=== PATIENT | male | born 1965 | race Caucasian/White ===

== ENCOUNTER 2019-04-10 12:43 | Emergency (ER) | payer BC, SELFPAY ==
[2019-04-10 12:57] VITALS: BP 160/98; PULSE 82; RESP 16; TEMP 37; O2SAT 98
--- NOTE | 2019-04-10 13:48 | ED.GENADULT ---
HPI - General Adult General Chief complaint: Upper Respiratory Infection Stated complaint: cough and ear Time Seen by Provider: 04/10/19 13:48 Source: patient Mode of arrival: ambulatory Limitations: no limitations History of Present Illness HPI narrative: 53-year-old male patient presents to the [facility] with complaints of cold symptoms for the past 8 days. Patient denies getting a flu shot this year. Patient denies any fevers. Patient states he has had a lot of drainage in the back of the throat causing coughing, runny nose, stuffy nose. Patient states he is also had some discomfort to the right ear. Denies any chest pain, shortness of breath, abdominal pain, nausea, vomiting or diarrhea. Patient denies taking anything for his symptoms. Related Data Home Medications Medication Instructions Recorded Confirmed losartan 50 mg PO DAILY 04/10/19 04/10/19 Allergies Allergy/AdvReac Type Severity Reaction Status Date / Time Penicillins Allergy Intermediate Anaphylaxis Verified 04/10/19 13:26 Review of Systems Review of Systems: Narrative: CONSTITUTIONAL: Denies fever, chills, or sweats. EYES: Denies visual changes, redness, or discharge. ENT: Positive rhinorrhea, congestion, sore throat, and right otalgia. CARDIOVASCULAR: Denies chest pain, palpitations, or edema. RESPIRATORY: Positive cough, denies dyspnea. GASTROINTESTINAL: Denies abdominal pain, nausea, vomiting, or diarrhea. GENITOURINARY: Denies dysuria or hematuria. SKIN: Denies rash or itching. MUSCULOSKELETAL: Denies back pain, joint pain, or myalgia. NEUROLOGIC: Denies headache, numbness, or weakness. PSYCHIATRIC: Denies anxiety or depression. PMFSH Social History Social History Alcohol intake: current Comments At the time of my signature I agree with nursing past medical history, surgical, social, and family history. There is no relevant family history pertinent to the presenting complaint. Exam Narrative: Exam Narrative: GENERAL: Well-appearing, well-nourished, and in no acute distress. HEAD: Normocephalic, atraumatic. No tenderness noted to frontal maxillary sinuses on palpation. EYES: PERRLA and EOMI. ENT: Nares with erythema and edema noted bilaterally, no rhinorrhea or epistaxis. Mucous membranes moist. Posterior pharynx with no erythema, tonsil enlargement, exudates or lesions present. There is a little fluid behind bilateral TMs noted but no erythema no foreign bodies in the canal. NECK: Supple. No lymphadenopathy CHEST: Clear to auscultation. No respiratory distress. HEART: Regular rate and rhythm. No murmur heard. Normal peripheral pulses. ABDOMEN: Soft, nontender, nondistended, normal active bowel sounds. EXTREMITIES: Normal range of motion. No edema. SKIN: Warm, dry, no rash. NEURO: No focal deficits. Alert and oriented x3. Course Vital Signs Vital signs: Vital Signs Temperature 37.0 C 04/10/19 12:57 Pulse Rate 82 04/10/19 12:57 Respiratory Rate 16 04/10/19 12:57 Blood Pressure 160/98 H 04/10/19 12:57 Pulse Oximetry 98 04/10/19 12:57 Temperature 37.0 C 04/10/19 12:57 Pulse Rate 82 04/10/19 12:57 Respiratory Rate 16 04/10/19 12:57 Blood Pressure 160/98 H 04/10/19 12:57 Pulse Oximetry 98 04/10/19 12:57 Vital signs reviewed. The patient has been informed that they may have pre-hypertension or Hypertension based on a BP reading in the department. I recommend that the patient call the primary care provider listed on their discharge instructions or a physician of their choice this week to arrange follow up for further evaluation of possible pre-hypertension or Hypertension Medical Decision Making Differential Diagnosis Differential Diagnosis: Differential diagnosis: Allergic rhinitis, chronic sinusitis, tonsillitis, acute sinusitis, infectious mononucleosis, seasonal influenza, pertussis, diphtheria, meningococcal disease, viral syndrome, viral bronc
== END 2019-04-10 13:55 | disposition home or self-care (01) ==
PROVIDERS: Emergency Provider Nurse Practitioner Family
DX: R05 Cough (principal); J30.9 Allergic rhinitis, unspecified; H93.8X3 Other specified disorders of ear, bilateral; J34.89 Other specified disorders of nose and nasal sinuses; K21.9 Gastro-esophageal reflux disease without esophagitis
CPT/HCPCS: 99211; G0463